=== PATIENT | female | born 1965 ===

== ENCOUNTER 2016-11-10 10:50 | Day surgery (SDC) | payer MEDICAID ==
[2016-11-03 10:54] VITALS: BMI 35.9
[2016-11-10] MEDS ORDERED: Propofol 10 mg/ml Inj (20 ML) ONE (12:20)
[2016-11-10] MEDS ORDERED: Lidocaine Hydrochloride 5 ML INJ ONE (12:21)
[2016-11-10] MEDS ORDERED: Neostigmine Methylsulfate 2 MG/2 ML ML IV ONE (12:21)
[2016-11-10] MEDS ORDERED: Midazolam 2 MG/2 ML VIAL ONE (12:21)
[2016-11-10] MEDS ORDERED: Rocuronium 10 mg/ml (5 ml) ONE (12:22)
[2016-11-10] MEDS ORDERED: Lactated Ringer's 1,000 ML IV ONE ×2 (13:22→16:35)
--- NOTE | 2016-11-10 14:41 | PCM.SURG1 ---
Surgeon's Initial Post Op Note - Surgeon's Notes Surgeon: Dr. Box Enroute Controller: Dr Whipple Type of Anesthesia: General Endo Pre-Operative Diagnosis: Incisional hernia Operative Findings: Incisional Hernia containing omentum Post-Operative Diagnosis: Incisional Hernia Operation Performed: Incisional Hernia repair with mesh Specimen/Specimens Removed: hernia sac Estimated Blood Loss: EBL {In ML}: 5 Blood Products Given: N/A Drains Used: No Drains Post-Op Condition: Good Date of Surgery/Procedure: 11/10/16 Time of Surgery/Procedure: 14:40
--- NOTE | 2016-11-10 14:44 | CP.SDSHP ---
Same Day Surgery H & P - Allergies Allergies: Allergies ceftriaxone sodium [From Rocephin] Allergy (Verified 03/16/16 16:40) RASH ciprofloxacin [From Cipro] Allergy (Verified 03/16/16 16:40) RASH ciprofloxacin HCl [From Cipro] Allergy (Verified 03/16/16 16:40) RASH naproxen Allergy (Verified 03/16/16 16:40) RASH Penicillins Allergy (Verified 03/16/16 16:40) RASH - Physical Exam Vital Signs: Vital Signs 11/10/16 11/10/16 11:15 11:25 Temperature 97.2 F L Pulse Rate 78 78 Respiratory 18 Rate Blood Pressure 122/66 O2 Sat by Pulse 100 Oximetry Short Stay Discharge - Short Stay Discharge Admitting Diagnosis/Reason for Visit: K43.2 Disposition: HOME/ ROUTINE Referrals: Rayray Roland MD [Primary Care Provider] - Follow-up: F/U in office in 1-2 weeks. Additional Instructions (Diet, Activity): May resume regular diet, light activities. Avoid any heavy lifting >10lbs for 6 weeks. Take percocet as prescribed for pain. Make an appointment to see Dr. Box in office in 1-2 weeks. Progress Note/Discharge Note with Instructions: as above
[2016-11-10] MEDS: HYDROmorphone 0.5 mg/0.5 ml ISec IVP PRN ×8 (14:45→16:30)
[2016-11-10] MEDS ORDERED: Lactated Ringer's 1,000 ML IV SCH (14:45)
[2016-11-10 17:27] VITALS: RESP 20
[2016-11-10] MEDS ORDERED: Oxycodone/Acetaminophen 5/325 mg Tab PO PRN (17:30)
[2016-11-10 18:21] VITALS: BP 110/77; TEMP 98.2
[2016-11-10] MEDS ORDERED: DiphenhydrAMINE 50 mg/ml Inj IVP PRN (19:06)
[2016-11-10] MEDS ORDERED: DiphenhydrAMINE 50 mg/ml Inj IVP ONE (19:23)
--- NOTE | 2016-11-10 19:26 | OP ---
PROCEDURE DATE: 11/10/2016 SURGEON: Dr. Box POLICY WRITER SALES: Dr. Whipple ANESTHESIA: General. ANESTHESIOLOGIST: Dr. Bruce PREOPERATIVE DIAGNOSIS: Incisional umbilical hernia. POSTOPERATIVE DIAGNOSIS: Incisional umbilical hernia. PROCEDURE: Umbilical hernia repair with mesh. DESCRIPTION OF OPERATION: With the patient in the supine position under adequate general anesthesia, the abdomen was prepped and draped in the usual sterile manner. A longitudinal incision was made al evgeny the right side of the umbilicus, taken down through to the subcutaneous tissue. Upon entering th e subcutaneous layer, a hernia sac was noted bulging up into the subcutaneous tissue and the incision was extended downward to encompass the area of the hernia sac. The sac was freed from the surroundi ng subcutaneous tissue and was noted to extend into the actual umbilicus. The umbilicus was elevated and dissected off the area of the sac. The sac was opened. It was noted to contain loculated oment um, which was adherent at points and there were intra-hernia loculations as well. The omentum was co mpletely freed from the sac and the sac was completely freed from the subcutaneous tissue where it ex tended caudad to the fascial defect. The hernia sac was divided at the level of the fascia and the o mentum was completely freed circumferentially and reduced into the peritoneal cavity. When the sac a nd the peritoneal surface had been all completely freed, there was noted to be a fascial defect of ap proximately 2 x 4 cm somewhat longitudinally oriented. The syxyri-vf-gvwyx sutures of 0 Prolene were placed at the upper and lower ends of the defect to medialize the musculature and an 8 cm Ventralex hernia patch was then placed within the remaining defect and fully deployed to completely cover the d efect with the edges of the central portion of the defect being sutured to the suture tails which bro ught them very close to complete closure. This suturing was performed with 2-0 Prolene interrupted s utures. When this had been completed, the patch was noted to cover the hernia and the defect was wel l closed. The base of the umbilicus was sutured down to the area of the closure with a 4-0 Monocryl suture and closure was performed first with a few interrupted subcutaneous sutures of 4-0 Monocryl an d then running subcuticular suture of 4-0 Monocryl and Steri-Strips. Dry sterile dressing was applie d. The patient tolerated the procedure well and transferred to the recovery room in stable condition . Estimated blood loss for the procedure was 5 mL. Steph Box MD cc: 58 TT: 11/10/2016 19:25:26
[2016-11-10 19:30] VITALS: PULSE 100; O2SAT 96
== END 2016-11-10 20:00 | disposition home or self-care (01) ==
LOC: H.OPSURG 10:50
PROVIDERS: ATTEND Specialist
DX: K43.2 Incisional hernia without obstruction or gangrene (principal); I10 Essential (primary) hypertension; M54.30 Sciatica, unspecified side

== ENCOUNTER 2018-06-27 00:25 | Emergency (ER) | payer MEDICAID ==
[2018-06-27 00:58] VITALS: BMI 33.2
--- NOTE | 2018-06-27 02:41 | ED PDOC ---
HPI: Back Time Seen by Provider: 06/27/18 01:37 Chief Complaint (Nursing): Back Pain Chief Complaint (Provider): Back pain History Per: Patient History/Exam Limitations: no limitations Onset/Duration Of Symptoms: Days (1 week) Current Symptoms Are (Timing): Still Present Severity: Severe Exacerbating Factor(s): Movement, Sitting, Standing Additional Complaint(s): 53 y/o F with HTN and DM-II who presents with back pain x 1 week. Patient states that she began having Right lower back pain about 1 week with radiation down Right leg and to lower abdomen with cramping sensation and some tingling in leg. She works as an attendant at a gym but denies any trauma, falls, numbness in lower extremity, fever, chills. Pt states that she has an allergy to Naproxen but has taken Ibuprofen many times w/o any reaction. Past Medical History Reviewed: Historical Data, Nursing Documentation, Vital Signs Vital Signs: Last Vital Signs Temp 98.0 F 06/27/18 00:58 Pulse 59 L 06/27/18 00:58 Resp 16 06/27/18 00:58 BP 116/74 06/27/18 00:58 Pulse Ox 99 06/27/18 00:58 - Medical History PMH: Diabetes, HTN Denies: Chronic Kidney Disease - Family History Family History: States: Unknown Family Hx - Immunization History Hx Tetanus Toxoid Vaccination: No Hx Influenza Vaccination: No Hx Pneumococcal Vaccination: No - Home Medications Home Medications: Ambulatory Orders Medication Instructions Recorded Losartan/Hydrochlorothiazide 1 tab PO DAILY 03/16/16 [Losartan-Hctz 50-12.5 mg Tab] MetFORMIN ER [Glucophage XR] 500 mg PO DAILY 02/19/18 Acetaminophen [Tylenol 325mg tab] 650 mg PO Q4 #50 tab 06/19/18 Alogliptin Simon/Metformin HCl PO BID 06/19/18 Lidocaine 5% [Lidoderm] 1 ea TD DAILY #6 patch 06/19/18 Poglitazone PO DAILY 06/19/18 Cyclobenzaprine [Cyclobenzaprine 10 mg PO Q8 PRN 5 Days tab 06/27/18 HCl] Ibuprofen [Motrin Tab] 600 mg PO Q6 PRN 5 Days tab 06/27/18 - Allergies Allergies/Adverse Reactions: Allergies Allergy/AdvReac Type Severity Reaction Status Date / Time ceftriaxone sodium Allergy RASH Verified 06/27/18 00:58 [From Rocephin] ciprofloxacin [From Cipro] Allergy RASH Verified 06/27/18 00:58 ciprofloxacin HCl Allergy RASH Verified 06/27/18 00:58 [From Cipro] naproxen Allergy RASH Verified 06/27/18 00:58 Penicillins Allergy RASH Verified 06/27/18 00:58 Review of Systems ROS Statement: Except As Marked, All Systems Reviewed And Found Negative Constitutional: Negative for: Fever, Chills Musculoskeletal: Positive for: Back Pain. Negative for: Neck Pain Skin: Negative for: Rash Physical Exam - Reviewed Nursing Documentation Reviewed: Yes Vital Signs Reviewed: Yes - Physical Exam Appears: Positive for: Uncomfortable Head Exam: Positive for: ATRAUMATIC Skin: Positive for: Normal Color Neck: Positive for: Normal Pulses-Dorsalis Pedis (R): 2+ Back: Positive for: Normal Inspection, Vertebral Tenderness, Decreased ROM (with flexion of back) Extremity: Negative for: Normal ROM (pain with flexion and abduction at the hip on Right) Neurologic/Psych: Positive for: Alert, Oriented, Other (sensation = in B/L lower extremitiues) - ECG O2 Sat by Pulse Oximetry: 99 Medical Decision Making Medical Decision Making: Toradol 30mg IM x 1 Flexeril 10mg PO x 1 Urine dip: no LE, nitrites Re-evaluation at 3:40am: pain has improved. Ready for d/c home. Disposition - Clinical Impression Clinical Impression: Sciatica - Patient ED Disposition Is Patient to be Admitted: No Counseled Patient/Family Regarding: Diagnosis, Need For Followup - Disposition Disposition: Routine/Home Disposition Time: 04:23 Condition: STABLE Additional Instructions: F/u with your primary care doctor as needed. Return to ED if you develop worsening numbness or tingling in feet, weakness in lower extremities or inability to hold urine/feces. Take Flexeril and Ibuprofen as needed for pain. Avoid driving or operating heavy machinery while taking Flexeril. Prescriptions: Cyclobenzaprine [Cyclobenzaprine HCl] 10 mg PO Q8 PRN 5 Days tab PRN Reason: Pain, Moderate (4-7) Ibuprofen [Motrin Tab] 600 mg PO Q6 PRN 5 Days tab PRN Reason: Pain, Moderate (4-7) Instructions: Sciatica (DC), Sciatica Exercises Forms: [facility] ([place]raltarian), [facility] ED School/Work Excuse Print Language: TURKMEN
[2018-06-27 04:24] VITALS: BP 113/75; PULSE 58; RESP 18; TEMP 97.9
[2018-06-27 06:47] VITALS: O2SAT 99
== END 2018-06-27 04:24 | disposition home or self-care (01) ==
LOC: H.ER 00:25
DX: M54.31 Sciatica, right side (principal)
CPT/HCPCS: 96372; 99283; J1885

== ENCOUNTER 2018-09-23 07:42 | Emergency (ER) | payer MEDICAID ==
[2018-09-23 07:47] VITALS: RESP 18; O2SAT 100
[2018-09-23 07:48] VITALS: BMI 34.7
--- NOTE | 2018-09-23 08:32 | ED PDOC ---
HPI: CCC, URI, Sore Throat Time Seen by Provider: 09/23/18 07:51 Chief Complaint (Nursing): Cough, Cold, Congestion Chief Complaint (Provider): Cough, Cold History Per: Patient History/Exam Limitations: no limitations Onset/Duration Of Symptoms: Days (6) Current Symptoms Are (Timing): Still Present Sick Contacts (Context): None Associated Symptoms: Chills, Cough, Sputum. denies: Vomiting, Diarrhea Additional Complaint(s): 53 year old female with diabetes presents to the ED for an evaluation of cold, body ache and troubled breathing onset for 6 days. Patient also reports of chills, phlegm with cough and choking sensation. She states her PMD is on vacation therefore she came to the ED for further evaluation. Otherwise, she denies sick contacts, abdominal pain, nausea, vomiting or diarrhea. PMD: Dr. Barron Past Medical History Reviewed: Historical Data, Nursing Documentation, Vital Signs Vital Signs: Last Vital Signs Temp 98.5 F 09/23/18 07:47 Pulse 97 H 09/23/18 07:47 Resp 18 09/23/18 07:47 BP 127/85 09/23/18 07:47 Pulse Ox 100 09/23/18 07:47 - Medical History PMH: Bronchitis, Diabetes, HTN Denies: Anemia (Pateint denies), Chronic Kidney Disease - Surgical History Surgical History: Hernia Repair Other surgeries: hysterectomy - Family History Family History: States: Unknown Family Hx - Social History Current smoker - smoking cessation education provided: No Alcohol: None Drugs: Denies - Immunization History Hx Tetanus Toxoid Vaccination: No Hx Influenza Vaccination: No Hx Pneumococcal Vaccination: No - Home Medications Home Medications: Ambulatory Orders Medication Instructions Recorded Alogliptin Simon/Metformin HCl 1 each PO BID 07/19/18 [Alogliptin-Metformin 12.5-500] Losartan/Hydrochlorothiazide 1 each PO DAILY 07/19/18 [Losartan-Hctz 50-12.5 mg Tab] Pioglitazone HCl 45 mg PO DAILY 07/19/18 Acetaminophen [Tylenol 325mg tab] 2 tab PO Q4H #30 tab 09/20/18 Azithromycin [Zithromax] 2 tab PO DAILY #6 tab 09/20/18 Ibuprofen [Motrin] 1 tab PO Q6 #30 tab 09/20/18 Azithromycin [Zithromax Tri-Xavier] 500 mg PO DAILY #1 packet 09/23/18 Promethazine DM [Phenergan DM 5 ml PO Q8H PRN #120 ml 09/23/18 Syrup] - Allergies Allergies/Adverse Reactions: Allergies Allergy/AdvReac Type Severity Reaction Status Date / Time ceftriaxone sodium Allergy RASH Verified 09/20/18 14:59 [From Rocephin] ciprofloxacin [From Cipro] Allergy RASH Verified 09/20/18 14:59 ciprofloxacin HCl Allergy RASH Verified 09/20/18 14:59 [From Cipro] naproxen Allergy RASH Verified 09/20/18 14:59 Penicillins Allergy RASH Verified 09/20/18 14:59 Review of Systems ROS Statement: Except As Marked, All Systems Reviewed And Found Negative Constitutional: Positive for: Chills, Other (body ache) Respiratory: Positive for: Cough, Shortness of Breath, Sputum Gastrointestinal: Negative for: Nausea, Vomiting, Abdominal Pain, Diarrhea Physical Exam - Reviewed Nursing Documentation Reviewed: Yes Vital Signs Reviewed: Yes - Physical Exam Appears: Positive for: Non-toxic, No Acute Distress Head Exam: Positive for: ATRAUMATIC, NORMAL INSPECTION, NORMOCEPHALIC Skin: Positive for: Normal Color, Warm, Dry Eye Exam: Positive for: EOMI, Normal appearance, PERRL ENT: Positive for: Normal ENT Inspection Neck: Positive for: Normal, Painless ROM, Supple Cardiovascular/Chest: Positive for: Regular Rate, Rhythm. Negative for: Murmur Respiratory: Positive for: Normal Breath Sounds. Negative for: Decreased Breath Sounds, Respiratory Distress Gastrointestinal/Abdominal: Positive for: Normal Exam, Soft. Negative for: Tenderness Back: Positive for: Normal Inspection Extremity: Positive for: Normal ROM. Negative for: Tenderness, Pedal Edema Neurologic/Psych: Positive for: Alert, Oriented (x3) - ECG O2 Sat by Pulse Oximetry: 100 (RA) Pulse Ox Interpretation: Normal - Radiology X-Ray: Viewed By Me X-Ray Interpretation: No Acute Disease Medical Decision Making Medical Decision Making: Time: 803 Impression: viral illness Plan: test (urine, POC) Chest two views (PA/LAT) Reevaluation Scribe Attestation: Documented by Joaquin Aceves, acting as a scribe for Berenice Lozoya MD. Provider Scribe Attestation: All medical record entries made by the Scribe were at my direction and personally dictated by me. I have reviewed the chart and agree that the record accurately reflects my personal performance of the history, physical exam, medical decision making, and the department course for this patient. I have also personally directed, reviewed, and agree with the discharge instructions and disposition. Disposition - Clinical Impression Clinical Impression: Bronchitis - Patient ED Disposition Is Patient to be Admitted: No Doctor Will See Patient In The: Office Counseled Patient/Family Regarding: Diagnosis, Need For Followup, Rx Given - Disposition Referrals: Rayray Roland MD [Family Provider] - Disposition: Routine/Home Disposition Time: 08:30 Condition: STABLE Prescriptions: Azithromycin [Zithromax Tri-Xavier] 500 mg PO DAILY #1 packet Promethazine DM [Phenergan DM Syrup] 5 ml PO Q8H PRN #120 ml PRN Reason: Cough Instructions: Acute Bronchitis Forms: [facility] ([place]ian), [facility] ED School/Work Excuse Print Language: GREENLANDIC - POA Present On Arrival: None
[2018-09-23 09:21] VITALS: BP 115/77; PULSE 83; TEMP 98.4
--- NOTE | 2018-09-23 10:59 | RAD ---
Date of service: 09/23/2018 HISTORY: Cough 6 days duration. COMPARISON: 06/04/2015 TECHNIQUE: Chest PA and lateral FINDINGS: LUNGS: No active pulmonary disease. PLEURA: No significant pleural effusion identified. No pneumothorax apparent. CARDIOVASCULAR: No aortic atherosclerotic calcification present. No radiographic findings to suggest acute or significant cardiovascular disease. No pulmonary vascular congestion. OSSEOUS STRUCTURES: No significant abnormalities. VISUALIZED UPPER ABDOMEN: Normal. OTHER FINDINGS: None. IMPRESSION: No active disease. No significant interval change compared to the prior examination(s).
== END 2018-09-23 09:21 | disposition home or self-care (01) ==
LOC: H.ER 07:42
DX: J40 Bronchitis, not specified as acute or chronic (principal); E11.9 Type 2 diabetes mellitus without complications; I10 Essential (primary) hypertension; Z79.84 Long term (current) use of oral hypoglycemic drugs; Z88.0 Allergy status to penicillin; Z88.1 Allergy status to other antibiotic agents; Z90.710 Acquired absence of both cervix and uterus